=== PATIENT | female | born 1995 | race Caucasian/White ===

== ENCOUNTER → 2017-02-20 | Outpatient (CLI) | payer OTHER ==
[~2017-02-20] MED LIST: AUGMENTIN875 MG; BACTRIM DS PO; BACTROBAN TOP; CHOLESTEROL PILL; COLACE PO; DIFLUCAN PO; KCL; LANTUS100 U/ML; LANTUS100 U/ML SUBQ; LANTUS100 UNITS/ SUBQ; NEUPOGEN480 MCG/0. INJ; NEURONTIN100 MG PO; NOVOLOG100 U/M2; NOVOLOG100 U/ML SUBQ; NOVOLOG100 UNITS/ SUBQ; PERCOCET5/325 PO; REGULAR INSULIN; REQUIP0.25 MG; VIGAMOX3 ML OP; VITAMIN D400 UNI2
[2017-02-20 12:18] LABS: AMPHETAMINE NEG (NEG); BARBITURATES NEG (NEG); BENZODIAZEPINES NEG (NEG); COCAINE NEG (NEG); MARIJUANA NEG (NEG); OPIATES NEG (NEG); TRICYCLIC ANTIDEPRESSANTS NEG (NEG); U METHADONE NEG (NEG)
[2017-02-20 12:21] LABS: PARTIAL THROMBOPLASTIN TIME 27.8 SECONDS (25.6-38.1)
[2017-02-20 12:22] LABS: BUN/CREATININE RATIO 23.33; CREATININE SERUM 0.3 mg/dL (0.6-1.4); GLOM FILT RATE Estimated 162.6 mL/min (>60); POTASSIUM 3.9 mmol/L (3.5-5.1)
[2017-02-20 12:23] LABS: DIFF IND YES; EOSINOPHIL# 0.1 X10e3 (0-0.7); EOSINOPHIL% 3.2 % (0.0-7.0); HEMATOCRIT 43.8 % (35.0-45.0); HEMOGLOBIN 14.5 gm/dL (12.0-16.0); LYMPHOCYTE% 60.3 % (17.0-45.0); MEAN CELL VOLUME 87.7 FL (83-96); MEAN CORPUSCULAR HEMOGLOBIN 29.1 PG (28-34); MEAN CORPUSCULAR HGB CONC 33.2 g/dL (30-36); MEAN PLATELET VOLUME 8.6 FL (6.5-11.5); MONOCYTE# 0.1 X10e3 (0-1.0); MONOCYTE% 4.5 % (3.0-12.0); PLATELET COUNT 346 X10e3 (140-420); RED BLOOD COUNT 4.99 X10e (3.90-5.30); RED CELL DISTRIBUTION WIDTH 12.9 % (11.0-15.5); WHITE BLOOD COUNT 3.3 X10e3 (4.0-10.5)
[2017-02-20 12:38] LABS: PLATELET ESTIMATE NORMAL (NORMAL); RBC NORMAL YES
== END | disposition home or self-care (01) ==
LOC: SLABONLY 11:42
PROVIDERS: Podiatrist
DX: R26.2 Difficulty in walking, not elsewhere classified (principal); M79.609 Pain in unspecified limb
CPT/HCPCS: 80048; 80307; 84703; 85025; 85610; 85730

== ENCOUNTER 2017-03-15 19:28 | Emergency (ER) | payer BC, OTHER ==
--- NOTE | ~2017-03-15 | CT114 ---
[facility] A Service of [facility] & [facility] RADIOLOGY TEXT RESULTS PATIENT: PENELOPE WEEMS LOCATION: SED : [birth year] UNIT #: [id number] AGE: [address]: Zeeshan Ahn MD SEX: F ORDER DR: [id number] [address] [address] [id number] E MR#: [id number] Acc #: [id number] NAME: PENELOPE WEEMS. : 1995 SEX: F STUDY DATE/TIME: 03/15/2017 20:26 UNIT: SED ROOM: STUDY DESCRIPTION: CT Soft Tissue Neck W Cont Attending Physician: Zeeshan Ahn M.D. Ordering Physician: Zeeshan Ahn M.D. Primary Care Physician: Mich Desai M.D. MEDICAL IMAGING REPORT This report is preliminary unless electronic signature is present. EXAM Neck CT with contrast. HISTORY Left-sided neck pain and palpable mass left side of the neck noted at the time of foot surgery on 03/09/2017. TECHNIQUE Axial imaging was obtained with contrast. 75 mL of Isovue was used. NOTE: This CT exam was performed with one or more of the following radiation dose reduction techniques: automatic exposure control, adjustment of mA and/or kV according to patient size, and iterative reconstruction. COMPARISON Comparison scan from 05/22/2016. FINDINGS Mild mucosal thickening is seen inferiorly in the right maxillary sinus. This is markedly improved from previous scan. The skull base, parapharyngeal spaces and pharyngeal mucosal surfaces have a normal appearance. The parotid and submandibular glands are normal in size. Bilateral cervical lymph nodes are seen. The nodes are somewhat numerous, but no larger than on the previous examination. As several of the nodes are slightly smaller since the previous exam. No abnormally enhancing nodes are seen. Soft tissue planes in the hypopharynx and larynx are preserved. The thyroid gland is not enlarged. The upper mediastinum is unremarkable. A left apical lung nodule is again noted and unchanged from previous scan. IMPRESSION Prominent lymph nodes bilaterally in the neck. Most of the nodes are unchanged. Several are smaller since the previous scan although the STS. [facility] A Service of [facility] & [facility] RADIOLOGY TEXT RESULTS PATIENT: PENELOPE WEEMS LOCATION: SED : [birth year] UNIT #: [id number] AGE: [address]: Zeeshan Ahn MD SEX: F ORDER DR: change is minimal. None of the lymph nodes have enlarged since the previous scan. The neck scan is otherwise unremarkable. There is a noncalcified left apical lung mass that is unchanged from the previous examination. Recommend continued follow up of this mass to document stability over a 2-year time frame per Fleischmann Society guidelines. Dictated by... Marco Mello M.D. THIS IS AN ELECTRONICALLY VERIFIED REPORT Marco Mello M.D. at 03/16/2017 10:07 AM GUIDO/natan TD: 03/15/2017 22:16 JOB #: [id number] MEDICAL IMAGING REPORT Page 1 of 1
[~2017-03-15 19:28] MED LIST changes: -KCL
[2017-03-15 20:13] LABS: CALCIUM SERUM 9.5 mg/dL (8.4-10.2); CREATININE SERUM 0.5 mg/dL (0.6-1.4); GLOM FILT RATE Estimated 137.4 mL/min (>60)
== END 2017-03-15 21:38 | disposition home or self-care (01) ==
LOC: SED 19:28
PROVIDERS: Emergency Medicine
DX: R59.0 Localized enlarged lymph nodes (principal); E11.65 Type 2 diabetes mellitus with hyperglycemia; R91.1 Solitary pulmonary nodule; F17.200 Nicotine dependence, unspecified, uncomplicated
CPT/HCPCS: 36415; 70491; 80048; 84703; 99284; Q9967

== ENCOUNTER → 2017-04-10 | Outpatient (CLI) | payer OTHER ==
[~2017-04-10] MED LIST changes: +KCL
--- NOTE | ~2017-04-10 | US85 ---
[facility] A Service of [facility] & [facility] RADIOLOGY TEXT RESULTS PATIENT: PENELOPE WEEMS LOCATION: CNIV : [birth year] UNIT #: [id number] AGE: [address]: Chucho Tomlin DPM SEX: F ORDER DR: [id number] [facility] [address] [place], [place] [address] [id number] O MR#: [id number] Acc #: [id number] NAME: PENELOPE WEEMS. : 1995 SEX: F STUDY DATE/TIME: 04/10/2017 17:08 UNIT: CNIV ROOM: STUDY DESCRIPTION: [facility] Attending Physician: Chucho Tomlin D.P.M. Referring Physician: Chucho Tomlin D.P.M. Ordering Physician: Chucho Tomlin D.P.M. Primary Care Physician: No Primary Care Physician MEDICAL IMAGING REPORT This report is preliminary unless electronic signature is present EXAM Color Doppler ultrasound examination of the left lower extremity HISTORY Left leg swelling for the past month. Surgery 1 month ago. TECHNIQUE Ultrasound evaluation was performed with neri-scale color-flow and Doppler spectral waveform analysis. FINDINGS The examination is negative. There is no evidence of left lower extremity deep venous thrombus from the groin to the lower calf. Visualized greater saphenous vein is also patent. IMPRESSION Negative examination. No evidence of left lower extremity deep venous thrombosis. Dictated by... Marco Mello M.D. THIS IS AN ELECTRONICALLY VERIFIED REPORT Marco Mello M.D. at 04/10/2017 10:18 PM GUIDO/jesús TD: 04/10/2017 19:32 JOB #: [id number] MEDICAL IMAGING REPORT Page 1 of 1 COPY
== END | disposition home or self-care (01) ==
LOC: CNIV 15:58
DX: R26.2 Difficulty in walking, not elsewhere classified (principal); M79.604 Pain in right leg
CPT/HCPCS: 93971

== ENCOUNTER 2017-04-16 21:37 | Emergency (ER) | payer BC, OTHER ==
[~2017-04-16 21:37] MED LIST changes: -KCL
[2017-04-16] MEDS ORDERED: REQUIP0.25 MG (21:52)
[2017-04-16] MEDS ORDERED: KCL (21:52)
== END 2017-04-16 23:24 | disposition home or self-care (01) ==
LOC: SED 21:37
DX: L02.31 Cutaneous abscess of buttock (principal); F17.210 Nicotine dependence, cigarettes, uncomplicated; E10.8 Type 1 diabetes mellitus with unspecified complications; Z79.4 Long term (current) use of insulin
CPT/HCPCS: 82947; 99282